=== PATIENT | female | born 1995 | race Caucasian/White ===

== ENCOUNTER 2017-05-10 09:08 | Emergency (ER) | payer OTHER ==
--- NOTE | 2017-05-10 09:28 | ED ---
Abdominal Pain/Female - HPI Summary HPI Summary: 22 female presents to ED with complaints of lower abdominal pain that comes and goes and is described as cramping/dull ache that began 2-3 weeks ago. States it is lower left side of abdomen. States she has also been nauseous. Had 2 episodes of vomiting yesterday. Normal bowel movement. No blood. No urinary symptoms and vaginal symptoms. Is sexually active and not on control. Is concerned about being . LMP was Apr 18. Is not concerned for STDs. . No other PMHx. No abdominal medical history or surgeries. No other complaints. No fever/chills. No recent travel, antibiotic use or take out food. No abdominal pain currently. States last time she was with her daughter she had the same symptoms. No medications. States she is anxious/ nervous because she thinks she is . States she also has significant breast tenderness and typically does not get that with menses. - History of Current Complaint Chief Complaint: EDAbdPain Stated Complaint: LT ABD PAIN Time Seen by Provider: 05/10/17 09:13 Hx Obtained From: Patient Hx From Patient Unobtainable Due To: Altered Mental Status Hx Last Menstrual Period: 04/18/17 , unknown if Onset/Duration: Sudden Onset, Lasting Weeks, Still Present Timing: Intermittent Episode Lasting Severity Initially: Mild Severity Currently: Mild Pain Intensity: 5 Pain Scale Used: 0-10 Numeric Location: Other - lower abdominal/suprapubic, LLQ Radiates: No Aggravating Factor(s): Nothing Alleviating Factor(s): Nothing Associated Signs and Symptoms: Positive: Nausea, Vomiting. Negative: Fever, Back Pain, Constipation, Blood in Stool, Urinary Symptoms, Decreased Appetite, Vaginal Bleeding, Vaginal Discharge, Diarrhea Allergies/Adverse Reactions: Allergies Allergy/AdvReac Type Severity Reaction Status Date / Time No Known Allergies Allergy Verified 05/10/17 09:14 PMH/Surg Hx/FS Hx/Imm Hx Endocrine/Hematology History: Denies: Hx Diabetes Cardiovascular History: Denies: Hx Hypertension Respiratory History: Denies: Hx Asthma - Surgical History Surgery Procedure, Year, and Place: none - Immunization History Immunizations Up to Date: Yes Infectious Disease History: No Infectious Disease History: Denies: Traveled Outside the [place] in Last 30 Days - Family History Known Family History: Positive: None - Social History Alcohol Use: None Substance Use Type: Reports: None Smoking Status (MU): Never Smoked Tobacco Review of Systems Constitutional: Negative Cardiovascular: Negative Respiratory: Negative Positive: Abdominal Pain, Vomiting, Nausea All Other Systems Reviewed And Are Negative: Yes Physical Exam Triage Information Reviewed: Yes Vital Signs On Initial Exam: Initial Vitals Temp Pulse Resp BP Pulse Ox 97.5 F 89 15 112/67 99 05/10/17 09:10 05/10/17 09:10 05/10/17 09:10 05/10/17 09:10 05/10/17 09:10 Vital Signs Reviewed: Yes Appearance: Positive: Well-Appearing, No Pain Distress, Well-Nourished Skin: Positive: Warm, Skin Color Reflects Adequate Perfusion, Dry. Negative: Cold, Numb, Cyanosis @, Pale, Erythema @ Head/Face: Positive: Normal Head/Face Inspection Eyes: Positive: Normal, EOMI, MERCEDES, Conjunctiva Clear ENT: Positive: Pharynx normal Neck: Positive: Supple Respiratory/Lung Sounds: Positive: Clear to Auscultation, Breath Sounds Present. Negative: Rales, Rhonchi, Wheezes Cardiovascular: Positive: Normal, RRR, Pulses are Symmetrical in both Upper and Lower Extremities. Negative: Murmur, Rub Abdomen Description: Positive: No Organomegaly, Soft, Other: - negative muprhys , rovsings, psoas and rebound. mild tenderness to palpation of suprapubic area more on left side. Negative: Bruit, CVA Tenderness (R), CVA Tenderness (L), Distended, Guarding, McBurney's Point Tenderness, Peritoneal Signs Bowel Sounds: Positive: Present Pelvic Exam: Positive: external exam normal - deferred exam Musculoskeletal: Positive: Normal, Strength/ROM Intact Neurological: Positive: Normal, Sensory/Motor Intact, Alert, Oriented to Person Place, Time Diagnostics - Vital Signs Vital Signs Temp Pulse Resp BP Pulse Ox 05/10/17 09:10 97.5 F 89 15 112/67 99 - Laboratory Result Diagrams: 05/10/17 09:50 05/10/17 09:50 Lab Statement: Any lab studies that have been ordered have been reviewed, and results considered in the medical decision making process. - Ultrasound No standard instances Ultrasound Interpretation: Positive (See Comments) - 1. THE ENDOMETRIUM IS SLIGHTLY THICKENED MEASURING 1.5 CM. 2. 1.6 CM HEMORRHAGIC CYST OF THE RIGHT OVARY. 3. 3.6 CM HYPERECHOIC CYSTIC LESION OF THE LEFT OVARY. DIFFERENTIAL INCLUDES AN ENDOMETRIOMA OR HEMORRHAGIC CYST. THE DIFFERENTIAL ALSO INCLUDES A DERMOID CYST, THOUGH THIS IS CONSIDERED LESS LIKELY. 4. NO SONOGRAPHIC FEATURES OF TORSION. PLEASE NOTE THAT PARTIAL OR INTERMITTENT TORSION MAY BE SONOGRAPHICALLY NORMAL. Ultrasound Interpretation Completed By: Radiologist Re-Evaluation - Re-Evaluation First Eval Re-Evaluation Time: 11:15 Change: Improved - feeling better no nausea, vomiting and no pain. Abdominal Pain Fem Course/Dx - Course Course Of Treatment: ultrasound obtained and showed bilateral ovarian cysts and thickened endometrium. labs and urinalysis obtained. labs show indeterminate HCG level with possible . patient was comfortable and without nausea/ vomiting and pain throughout ED stay. deferred pelvic exam. will have follow up HCG in 72 hours and will follow up with OBGYN to follow up on ovarian cysts. Tylenol and heating pad for any pain. Follow up OBGYN to determine confirmed prengnacy or not. No other concerns/complaints at this time. Aware of worsening signs and symptoms. Normal vitals, physical exam and labs otherwise. - Diagnoses Differential Diagnosis: Positive: Ovarian Cyst, Pelvic Inflammatory Disease, , Other - nausea/vomiting Provider Diagnoses: Ovarian cyst, Possible , not yet confirmed, Nausea Discharge - Discharge Plan Condition: Good Disposition: HOME Patient Education Materials: Nausea and Vomiting in (ED), ( ED), Ovarian Cyst (ED) Referrals: Lynne Kate MD [Medical Doctor] - Additional Instructions: Tylenol as needed for discomfort. Warm heating pads. Increase fluid intake. Have repeat HCG in 72 bours to determine status. Follow up with OBGYN for recheck HCG and repeat US to watch ovarian cysts. Any new or worsening signs/symptoms please seek medical attention promptly, as discussed.
[2017-05-10 10:06] LABS: ABS Basophils 0 10^3/ul (0-0.2); ABS Eosinophils 0.1 10^3/ul (0-0.6); ABS Lymphocytes 1.8 10^3/ul (1.0-4.8); ABS Monocytes 0.4 10^3/ul (0-0.8); ABS Neutrophils 4.5 10^3/ul (1.5-7.7); ABS Nucleated RBC 0 10^3/ul; Eosinophil % 1.4 % (0-6); Hematocrit 37 % (35-47); Hemoglobin 12.3 g/dl (12.0-16.0); Lymphocyte % 25.8 % (25-47); Mean Corpuscular HGB Conc 33 g/dl (31-36); Mean Corpuscular Hemoglobin 30 pg (27-31); Mean Corpuscular Volume 88 fL (80-97); Mean Platelet Volume 9 um3 (7.4-10.4); Nucleated Red Blood Cells % 0; Platelet Count 208 10^3/ul (150-450); Red Blood Count 4.16 10^6/ul (4.0-5.4); Red Cell Distribution Width 14 % (10.5-15); White Blood Count 6.9 10^3/ul (3.5-10.8)
[2017-05-10 10:54] LABS: Urine Appearance Clear; Urine Blood Negative (Negative); Urine Color Colorless; Urine Ketones Trace (Negative); Urine Protein Negative (Negative); Urine Specific Gravity 1.002 (1.010-1.030); Urine Urobilinogen Negative (Negative)
--- NOTE | 2017-05-10 11:00 | RAD ---
Edited for charges. HISTORY: Lower abdominal pain COMPARISONS: None TECHNIQUE: Multiple transverse and longitudinal ultrasound images were obtained of the pelvis using grayscale, color Doppler, and spectral Doppler imaging using the endovaginal transducer. FINDINGS: UTERUS: The uterus measures 8.6 x 4.4 x 6 cm. The uterus is normal in shape, size, contour, and echotexture. ENDOMETRIUM: The endometrial stripe is smooth. The endometrium measures 1.5 cm in thickness. CUL-DE-SAC: There is no free fluid within the cul-de-sac. RIGHT OVARY: The right ovary measures 3.8 x 1.8 x 2 cm. Normal arterial and venous waveforms are identifiable within the ovary on spectral Doppler imaging. There is a complicated cyst suggestive of a hemorrhagic cyst measuring 1.6 x 1.3 x 1.4 cm in size. LEFT OVARY: The left ovary measures 4.3 x 3.4 x 3.2 cm. Normal arterial and venous waveforms are identifiable within the ovary on spectral Doppler imaging. There is a homogeneously hyperechoic cystic lesion of the left ovary measuring 3.2 x 3.6 x 3.2 cm in size. There is no internal vascularity or shadowing elements BLADDER: The bladder is not well visualized. OTHER: None IMPRESSION: 1. THE ENDOMETRIUM IS SLIGHTLY THICKENED MEASURING 1.5 CM. 2. 1.6 CM HEMORRHAGIC CYST OF THE RIGHT OVARY. 3. 3.6 CM HYPERECHOIC CYSTIC LESION OF THE LEFT OVARY. DIFFERENTIAL INCLUDES AN ENDOMETRIOMA OR HEMORRHAGIC CYST. THE DIFFERENTIAL ALSO INCLUDES A DERMOID CYST , THOUGH THIS IS CONSIDERED LESS LIKELY. 4. NO SONOGRAPHIC FEATURES OF TORSION. PLEASE NOTE THAT PARTIAL OR INTERMITTENT TORSION MAY BE SONOGRAPHICALLY NORMAL. MTDD
[2017-05-10 11:47] VITALS: BP 112/68
== END 2017-05-10 11:46 | disposition home or self-care (01) ==
LOC: ED 09:08
DX: N83.209 Unspecified ovarian cyst, unspecified side (principal); R10.32 Left lower quadrant pain; R11.2 Nausea with vomiting, unspecified
CPT/HCPCS: 36415; 76830; 76856; 80053; 81003; 83605; 83690; 84702; 85025; 86140; 99282

== ENCOUNTER 2017-05-13 09:10 | Emergency (ER) | payer OTHER ==
[2017-05-13 09:50] LABS: Urine Appearance Clear; Urine Blood 1+ (Negative); Urine Color Yellow; Urine Ketones 1+ (Negative); Urine Protein Negative (Negative); Urine Specific Gravity 1.012 (1.010-1.030); Urine Urobilinogen Negative (Negative)
[2017-05-13 09:57] LABS: ABS Basophils 0 10^3/ul (0-0.2); ABS Eosinophils 0.1 10^3/ul (0-0.6); ABS Monocytes 0.5 10^3/ul (0-0.8); ABS Neutrophils 5.3 10^3/ul (1.5-7.7); ABS Nucleated RBC 0 10^3/ul; Eosinophil % 1.2 % (0-6); Hematocrit 39 % (35-47); Hemoglobin 12.7 g/dl (12.0-16.0); Lymphocyte % 24.8 % (25-47); Mean Corpuscular HGB Conc 33 g/dl (31-36); Mean Corpuscular Hemoglobin 29 pg (27-31); Mean Corpuscular Volume 89 fL (80-97); Mean Platelet Volume 9 um3 (7.4-10.4); Nucleated Red Blood Cells % 0; Platelet Count 221 10^3/ul (150-450); Red Blood Count 4.37 10^6/ul (4.0-5.4); Red Cell Distribution Width 15 % (10.5-15); White Blood Count 7.9 10^3/ul (3.5-10.8)
[2017-05-13 10:15] LABS: EGFR Non-African American 103.7 (>60)
[2017-05-13 11:04] VITALS: BP 118/59
--- NOTE | 2017-05-13 11:08 | ED ---
Malina Layne Gabriel scribed for Brendon Bustamante MD on 05/13/17 at 0934 . GI/ HPI - HPI Summary HPI Summary: This patient is a 22 year old F presenting to [facility] to confirm her . Patient states she was told to come back in 72 hours to confirm her and she how far along she is. She was seen 3 days ago for ABD pain and an US revealed an enlarged left sided ovarian cyst. Patient reports fatigue, myalgia, morning sickness, and nausea. She states that due to her condition at the time of her last exam they were unable to tell if she was . - History of Current Complaint Chief Complaint: EDOBProblems Time Seen by Provider: 05/13/17 09:25 Stated Complaint: OB PROBLEM-RETURN FROM [facility] Hx Obtained From: Patient Hx Last Menstrual Period: 04/18/17 , unknown if Onset/Duration: Still Present Timing: Constant Severity: Mild Current Severity: Mild Pain Intensity: 2 Location of Pain: Diffuse Associated Signs and Symptoms: Positive: Other: - fatigue, myalgia, morning sickness, and nausea. - Allergy/Home Medications Allergies/Adverse Reactions: Allergies Allergy/AdvReac Type Severity Reaction Status Date / Time No Known Allergies Allergy Verified 05/13/17 09:23 PMH/Surg Hx/FS Hx/Imm Hx Endocrine/Hematology History: Denies: Hx Diabetes Cardiovascular History: Denies: Hx Hypertension Respiratory History: Denies: Hx Asthma History: Reports: Other Problems/Disorders - ovarian cysts - Surgical History Surgery Procedure, Year, and Place: none Infectious Disease History: No Infectious Disease History: Denies: Traveled Outside the [place] in Last 30 Days - Family History Known Family History: Negative: Diabetes, Renal Disease, Respiratory Disease, Seizure Disorder - Social History Alcohol Use: None Substance Use Type: Reports: None Smoking Status (MU): Never Smoked Tobacco Review of Systems Positive: Fatigue, Other - morning sickness Positive: Nausea Positive: Myalgia All Other Systems Reviewed And Are Negative: Yes Physical Exam - Summary Physical Exam Summary: VITAL SIGNS: Reviewed. GENERAL: Patient is a well-developed and nourished female who is lying comfortable in the stretcher. Patient is not in any acute respiratory distress. HEAD AND FACE: No signs of trauma. No ecchymosis, hematomas or skull depressions. No sinus tenderness. EYES: PERRLA, EOMI x 2, No injected conjunctiva, no nystagmus. EARS: Hearing grossly intact. Ear canals and tympanic membranes are within normal limits. MOUTH: Oropharynx within normal limits. NECK: Supple, trachea is midline, no adenopathy, no JVD, no carotid bruit, no c- spine tenderness, neck with full ROM. CHEST: Symmetric, no tenderness at palpation LUNGS: Clear to auscultation bilaterally. No wheezing or crackles. CVS: Regular rate and rhythm, S1 and S2 present, no murmurs or gallops appreciated. ABDOMEN: Soft, non-tender. No signs of distention. No rebound no guarding, and no masses palpated. Bowel sounds are normal. EXTREMITIES: FROM in all major joints, no edema, no cyanosis or clubbing. NEURO: Alert and oriented x 3. No acute neurological deficits. Speech is normal and follows commands. SKIN: Dry and warm Triage Information Reviewed: Yes Vital Signs On Initial Exam: Initial Vitals Temp Pulse Resp BP Pulse Ox 96.9 F 95 14 114/67 100 05/13/17 09:11 05/13/17 09:11 05/13/17 09:11 05/13/17 09:11 05/13/17 09:11 Vital Signs Reviewed: Yes Diagnostics - Vital Signs Vital Signs Temp Pulse Resp BP Pulse Ox 05/13/17 09:11 96.9 F 95 14 114/67 100 - Laboratory Lab Results: Lab Results 05/13/17 05/13/17 05/13/17 Range/Units 09:34 09:42 09:42 WBC 7.9 (3.5-10.8) 10^3/ul RBC 4.37 (4.0-5.4) 10^6/ul Hgb 12.7 (12.0-16.0) g/dl Hct 39 (35-47) % MCV 89 (80-97) fL MCH 29 (27-31) pg MCHC 33 (31-36) g/dl RDW 15 (10.5-15) % Plt Count 221 (150-450) 10^3/ul MPV 9 (7.4-10.4) um3 Neut % (Auto) 67.7 (38-83) % Lymph % (Auto) 24.8 L (25-47) % [place] % (Auto) 5.9 (0-7) % Eos % (Auto) 1.2 (0-6) % Baso % (Auto) 0.4 (0-2) % Absolute Neuts (auto) 5.3 (1.5-7.7) 10^3/ul Absolute Lymphs (auto) 2.0 (1.0-4.8) 10^3/ul Absolute Monos (auto) 0.5 (0-0.8) 10^3/ul Absolute Eos (auto) 0.1 (0-0.6) 10^3/ul Absolute Basos (auto) 0 (0-0.2) 10^3/ul Absolute Nucleated RBC 0 10^3/ul Nucleated RBC % 0 Sodium 135 (133-145) mmol/L Potassium 3.5 (3.5-5.0) mmol/L Chloride 104 (101-111) mmol/L Carbon Dioxide 25 (22-32) mmol/L Anion Gap 6 (2-11) mmol/L BUN 7 (6-24) mg/dL Creatinine 0.70 (0.51-0.95) mg/dL Est GFR ( Amer) 133.4 (>60) Est GFR (Non-Af Amer) 103.7 (>60) BUN/Creatinine Ratio 10.0 (8-20) Glucose 95 (70-100) mg/dL Calcium 9.3 (8.6-10.3) mg/dL Total Bilirubin 0.50 (0.2-1.0) mg/dL AST 13 (13-39) U/L ALT 14 (7-52) U/L Alkaline Phosphatase 65 (34-104) U/L C-Reactive Protein 7.12 H (< 5.00) mg/L Total Protein 7.4 (6.4-8.9) g/dL Albumin 4.3 (3.2-5.2) g/dL Globulin 3.1 (2-4) g/dL Albumin/Globulin Ratio 1.4 (1-3) Beta HCG, Quant 71.30 mIU/mL Urine Color Yellow Urine Appearance Clear Urine pH 6.0 (5-9) Ur Specific [place] 1.012 (1.010-1.030) Urine Protein Negative (Negative) Urine Ketones 1+ A (Negative) Urine Blood 1+ A (Negative) Urine Nitrate Negative (Negative) Urine Bilirubin Negative (Negative) Urine Urobilinogen Negative (Negative) Ur Leukocyte Esterase Negative (Negative) Urine WBC (Auto) Absent (Absent) Urine RBC (Auto) Trace(0-2/hpf) (Absent) Ur Squamous Epith Cells Present A (Absent) Urine Bacteria Absent (Absent) Urine Glucose Negative (Negative) Result Diagrams: 05/13/17 09:42 05/13/17 09:42 Lab Statement: Any lab studies that have been ordered have been reviewed, and results considered in the medical decision making process. GIGU Course/Dx - Course Assessment/Plan: This patient is a 22 year old F presenting to [facility] to confirm her . Patient states she was told to come back in 72 hours to confirm her and she how far along she is. She was seen 3 days ago for ABD pain and an US revealed an enlarged left sided ovarian cyst. Patient reports fatigue, myalgia, morning sickness, and nausea. She states that due to her condition at the time of her last exam they were unable to tell if she was . Test results with no significant abnormalities except for beta HCG of 71. Thus she may have an early however it is double in 48 hours. She will be referred to ACCESS REP. Dx . Patient will be discharged and follow up from [facility]. She has no abdominal pain or cramping. no vaginal bleeding or discharge. I discussed all the findings and test results with the patient. Patient was instructed to return to the emergency room immediately if any of the symptoms return or worsens. Plan of care was discussed with the patient and understands and agrees. All questions were answered at patient satisfaction. There were no further complaints or concerns. Lung exam before discharge: CTA B/L. Good air exchange. No wheezing or crackles heard. CVS: S1 and S2 present. No murmurs appreciated. Patient is alert and oriented x 3. Patient is hemodynamically stable. Patient will be discharged home with follow up PCP in the next 2-3 days. The patient is agreeable with this plan. - Diagnoses Provider Diagnoses: Discharge - Discharge Plan Condition: Stable Disposition: HOME Patient Education Materials: (ED) Referrals: Lynne Kate MD [Medical Doctor] - 4 Days Additional Instructions: RETURN TO EMERGENCY DEPARTMENT FOR ANY NEW OR WORSENING SYMPTOMS The documentation as recorded by the Malina cordon Gabriel accurately reflects the service I personally performed and the decisions made by Robby araiza Walter, MD.
== END 2017-05-13 11:03 | disposition home or self-care (01) ==
LOC: ED 09:10
DX: O26.90 Pregnancy related conditions, unspecified, unspecified trimester (principal); R53.83 Other fatigue; R11.0 Nausea
CPT/HCPCS: 36415; 80053; 81003; 81015; 84702; 85025; 86140; 99282

== ENCOUNTER 2017-05-19 15:54 | Emergency (ER) | payer SELFPAY ==
[2017-05-19] MEDS ORDERED: NS 0.9% 1000 ML* 1,000 ML IV ONE (19:19)
[2017-05-19 19:44] LABS: ABS Basophils 0 10^3/ul (0-0.2); ABS Eosinophils 0.1 10^3/ul (0-0.6); ABS Lymphocytes 3.1 10^3/ul (1.0-4.8); ABS Monocytes 0.6 10^3/ul (0-0.8); ABS Neutrophils 6.1 10^3/ul (1.5-7.7); ABS Nucleated RBC 0 10^3/ul; Eosinophil % 1.1 % (0-6); Hematocrit 39 % (35-47); Hemoglobin 12.9 g/dl (12.0-16.0); Lymphocyte % 31.4 % (25-47); Mean Corpuscular HGB Conc 33 g/dl (31-36); Mean Corpuscular Hemoglobin 30 pg (27-31); Mean Corpuscular Volume 89 fL (80-97); Mean Platelet Volume 9 um3 (7.4-10.4); Nucleated Red Blood Cells % 0; Platelet Count 264 10^3/ul (150-450); Red Blood Count 4.35 10^6/ul (4.0-5.4); Red Cell Distribution Width 15 % (10.5-15)
[2017-05-19] MEDS ORDERED: Metoclopramide TAB* 10 MG PO ONE (19:47)
[2017-05-19 20:01] LABS: EGFR Non-African American 107.2 (>60)
--- NOTE | 2017-05-19 21:11 | RAD ---
Indication: . 5 weeks 0 days based on April 17, 2017 LMP however beta hCG only 353. No gestational sac visualized on May 10, 2017 ultrasound. LEFT lower quadrant pain. Question ectopic. History of ovarian cysts. Comparison: May 10, 2017 Technique: Transabdominal and transvaginal technique pelvic ultrasound. Report: 9.9 x 4.7 x 6.4 cm retroverted uterus. 18 mm endometrium. Minimal fluid at the fundal portion of the endometrial cavity. No compelling intrauterine gestational sac evident. Trace free fluid in the RIGHT adnexal region. 4.3 x 2.8 x 1.9 cm RIGHT ovary with documented vascular flow is remarkable for a 1.9 x 1.5 x 1.5 cm cyst with a reticulated pattern of internal echoes devoid of intrinsic vascularity most consistent with a hemorrhagic cyst without significant change compared with the prior exam. 5.0 x 3.5 x 3.4 cm LEFT ovary with documented vascular flow is remarkable for a 3.1 x 3.5 x 3.5 cm thick irregular walled complex cyst with with equivocal intrinsic vascularity. No visualized extra ovarian adnexal region lesions evident. IMPRESSION: 1. No compelling IUP visualized. 5 mm circumscribed fluid at the fundal portion of the endometrium while nonspecific may represent a pseudosac or failed intrauterine gestation. 2. No extra ovarian adnexal region lesions to favor ectopic . 3. No significant change in 1.9 cm hemorrhagic cyst of the RIGHT ovary or complex irregularly thick walled cyst of the LEFT ovary measuring up to 3.5 cm which may represent a hemorrhagic cyst, endometrioma, or potentially a dermoid cyst. 4. Close clinical, serial beta-hCG, and sonographic follow-up suggested as deemed appropriate.
[2017-05-19 21:16] LABS: Urine Appearance Cloudy; Urine Blood Negative (Negative); Urine Color Yellow; Urine Ketones Trace (Negative); Urine Protein Negative (Negative); Urine Specific Gravity 1.016 (1.010-1.030); Urine Urobilinogen Negative (Negative)
--- NOTE | 2017-05-19 23:01 | ED ---
Abdominal Pain/Female - HPI Summary HPI Summary: Patient here with left lower quadrant pain since last night. She has a history of documented via serum hCG as of 05/13/2017 and repeated once since (increasing each time - most recent in 's - see labs for details). During her initial visit here on 05/10/2017 in the emergency department for left lower quadrant pain, she was found to have a bilateral ovarian cysts, left greater than right. was not identified structurally at that time and torsion was ruled out. She was advised to follow w/ serumn hcg which she has w / [facility] (see previous comments). She denies any vaginal bleeding, vaginal d/c, cramping, change in bowel or bladder habits. She does have nausea every morning and declined anti-emetic medication last time she was here. She also has not been taking acetaminophen as she does not want to take anything during her . 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 Her second was viable and she delivered vaginally without complications. Tonight she denies fevers, chills, chest pain, headache , skin changes, difficulty breathing. She had initial visit with [facility] this past week and has a follow-up in June. She is here tonight due to return of left lower quadrant pain. - History of Current Complaint Chief Complaint: EDNauseaVomitDiarrh Stated Complaint: NAUSEA/5 WEEKS Time Seen by Provider: 05/19/17 19:18 Hx Obtained From: Patient Hx Last Menstrual Period: 04/18/17 , unknown if Pain Intensity: 4 Allergies/Adverse Reactions: Allergies Allergy/AdvReac Type Severity Reaction Status Date / Time No Known Allergies Allergy Verified 05/13/17 09:23 PMH/Surg Hx/FS Hx/Imm Hx Previously Healthy: Yes Endocrine/Hematology History: Denies: Hx Anticoagulant Therapy, Hx Blood Disorders, Hx Diabetes Cardiovascular History: Denies: Hx Hypertension Respiratory History: Denies: Hx Asthma History: Reports: Other Problems/Disorders - ovarian cysts - Surgical History Surgery Procedure, Year, and Place: none Infectious Disease History: No Infectious Disease History: Denies: Traveled Outside the [place] in Last 30 Days - Family History Known Family History: Positive: None Negative: Diabetes, Renal Disease, Respiratory Disease, Seizure Disorder - Social History Alcohol Use: None Substance Use Type: Reports: None Smoking Status (MU): Never Smoked Tobacco Physical Exam Vital Signs On Initial Exam: Initial Vitals Temp Pulse Resp BP Pulse Ox 98 F 101 14 109/62 100 05/19/17 16:00 05/19/17 16:00 05/19/17 16:00 05/19/17 16:00 05/19/17 16:00 Diagnostics - Vital Signs Vital Signs Temp Pulse Resp BP Pulse Ox 05/19/17 16:00 98 F 101 14 109/62 100 - Laboratory Lab Results: Lab Results 05/19/17 05/19/17 05/19/17 Range/Units 19:31 19:31 19:31 WBC 10.0 (3.5-10.8) 10^3/ul RBC 4.35 (4.0-5.4) 10^6/ul Hgb 12.9 (12.0-16.0) g/dl Hct 39 (35-47) % MCV 89 (80-97) fL MCH 30 (27-31) pg MCHC 33 (31-36) g/dl RDW 15 (10.5-15) % Plt Count 264 (150-450) 10^3/ul MPV 9 (7.4-10.4) um3 Neut % (Auto) 60.9 (38-83) % Lymph % (Auto) 31.4 (25-47) % [place] % (Auto) 6.1 (0-7) % Eos % (Auto) 1.1 (0-6) % Baso % (Auto) 0.5 (0-2) % Absolute Neuts (auto) 6.1 (1.5-7.7) 10^3/ul Absolute Lymphs (auto) 3.1 (1.0-4.8) 10^3/ul Absolute Monos (auto) 0.6 (0-0.8) 10^3/ul Absolute Eos (auto) 0.1 (0-0.6) 10^3/ul Absolute Basos (auto) 0 (0-0.2) 10^3/ul Absolute Nucleated RBC 0 10^3/ul Nucleated RBC % 0 Sodium 138 (133-145) mmol/L Potassium 3.7 (3.5-5.0) mmol/L Chloride 104 (101-111) mmol/L Carbon Dioxide 24 (22-32) mmol/L Anion Gap 10 (2-11) mmol/L BUN 4 L (6-24) mg/dL Creatinine 0.68 (0.51-0.95) mg/dL Est GFR ( Amer) 137.9 (>60) Est GFR (Non-Af Amer) 107.2 (>60) BUN/Creatinine Ratio 5.9 L (8-20) Glucose 96 (70-100) mg/dL Lactic Acid 0.7 (0.5-2.0) mmol/L Calcium 9.5 (8.6-10.3) mg/dL Magnesium 2.2 (1.9-2.7) mg/dL Total Bilirubin 0.30 (0.2-1.0) mg/dL AST 14 (13-39) U/L ALT 17 (7-52) U/L Alkaline Phosphatase 65 (34-104) U/L C-Reactive Protein 8.51 H (< 5.00) mg/L Total Protein 7.7 (6.4-8.9) g/dL Albumin 4.5 (3.2-5.2) g/dL Globulin 3.2 (2-4) g/dL Albumin/Globulin Ratio 1.4 (1-3) Lipase 14 (11.0-82.0) U/L Beta HCG, Quant 1188.27 mIU/mL Urine Color Urine Appearance Urine pH (5-9) Ur Specific [place] (1.010-1.030) Urine Protein (Negative) Urine Ketones (Negative) Urine Blood (Negative) Urine Nitrate (Negative) Urine Bilirubin (Negative) Urine Urobilinogen (Negative) Ur Leukocyte Esterase (Negative) Urine Glucose (Negative) 05/19/17 Range/Units 20:56 WBC (3.5-10.8) 10^3/ul RBC (4.0-5.4) 10^6/ul Hgb (12.0-16.0) g/dl Hct (35-47) % MCV (80-97) fL MCH (27-31) pg MCHC (31-36) g/dl RDW (10.5-15) % Plt Count (150-450) 10^3/ul MPV (7.4-10.4) um3 Neut % (Auto) (38-83) % Lymph % (Auto) (25-47) % Kent % (Auto) (0-7) % Eos % (Auto) (0-6) % Baso % (Auto) (0-2) % Absolute Neuts (auto) (1.5-7.7) 10^3/ul Absolute Lymphs (auto) (1.0-4.8) 10^3/ul Absolute Monos (auto) (0-0.8) 10^3/ul Absolute Eos (auto) (0-0.6) 10^3/ul Absolute Basos (auto) (0-0.2) 10^3/ul Absolute Nucleated RBC 10^3/ul Nucleated RBC % Sodium (133-145) mmol/L Potassium (3.5-5.0) mmol/L Chloride (101-111) mmol/L Carbon Dioxide (22-32) mmol/L Anion Gap (2-11) mmol/L BUN (6-24) mg/dL Creatinine (0.51-0.95) mg/dL Est GFR ( Amer) (>60) Est GFR (Non-Af Amer) (>60) BUN/Creatinine Ratio (8-20) Glucose (70-100) mg/dL Lactic Acid (0.5-2.0) mmol/L Calcium (8.6-10.3) mg/dL Magnesium (1.9-2.7) mg/dL Total Bilirubin (0.2-1.0) mg/dL AST (13-39) U/L ALT (7-52) U/L Alkaline Phosphatase (34-104) U/L C-Reactive Protein (< 5.00) mg/L Total Protein (6.4-8.9) g/dL Albumin (3.2-5.2) g/dL Globulin (2-4) g/dL Albumin/Globulin Ratio (1-3) Lipase (11.0-82.0) U/L Beta HCG, Quant mIU/mL Urine Color Yellow Urine Appearance Cloudy Urine pH 5.0 (5-9) Ur Specific [place] 1.016 (1.010-1.030) Urine Protein Negative (Negative) Urine Ketones Trace A (Negative) Urine Blood Negative (Negative) Urine Nitrate Negative (Negative) Urine Bilirubin Negative (Negative) Urine Urobilinogen Negative (Negative) Ur Leukocyte Esterase Negative (Negative) Urine Glucose Negative (Negative) Result Diagrams: 05/19/17 19:31 05/19/17 19:31 Lab Statement: Any lab studies that have been ordered have been reviewed, and results considered in the medical decision making process. Abdominal Pain Fem Course/Dx - Course Course Of Treatment: Ultrasound. "Impression: 1. No compelling IUP visualized. 5 mm circumscribed fluid at the fundal portion of the endometrium while nonspecific may represent a pseudocyst sac Or failed intrauterine gestation. 2. No extra ovarian adnexal region lesions disfavor ectopic . 3. No significant change and 1.9 cm hemorrhagic cyst on the right ovary or complex irregularly thick-walled cyst of the left ovary measuring up to 3.5 cm which may represent a hemorrhagic cyst, endometrioma or potentially a dermoid cyst. 4. Close clinical, serial beta hCG, and sonographic follow-up suggested as deemed appropriate. Torsion and ectopic ruled out. Serum hcg continues to increase and something ID'd in uterus. Advised pt on close f/u and danger s/sx of when to return to ED - Diagnoses Provider Diagnoses: Bilateral ovarian cysts, - Provider Notifications Discussed Care Of Patient With: Charly Durham Discharge - Discharge Plan Condition: Stable Disposition: HOME Prescriptions: Metoclopramide TAB* [Reglan TAB*] 10 mg PO Q8H PRN #15 tab PRN Reason: Nausea Patient Education Materials: Nausea and Vomiting in (ED), ( ED), Ovarian Cyst (ED) Referrals: Lynne Kate MD [Medical Doctor] - Additional Instructions: Your ultrasound ruled out ovarian torsion and ectopic as well as worsening of your ovarian cysts (the left is larger then the right which is most likely causing your pain). In regards to a viable , it's still too soon to tell however you have a sac in the uterus which could be a . You may treat this as a viable and follow-up with [facility] Monday or Monday for repeat hcg lab and ultrasound at their discretion - call Monday to schedule an appointment. You may try warm baths with acetaminophen for pain. Additionally, you were prescribed reglan for nausea - take as directed. *If in the meantime you develop vaginal bleeding, worsening of pain, cramping, intractable vomiting/diarrhea, fever, chills, return to the ED
[2017-05-19 23:25] VITALS: BP 92/48
== END 2017-05-19 23:24 | disposition home or self-care (01) ==
LOC: ED 15:54
DX: O34.81 Maternal care for other abnormalities of pelvic organs, first trimester (principal); N83.202 Unspecified ovarian cyst, left side; N83.201 Unspecified ovarian cyst, right side; Z3A.01 Less than 8 weeks gestation of pregnancy
CPT/HCPCS: 36415; 76817; 80053; 81003; 83605; 83690; 83735; 84702; 85025; 86140; 96360; 99283; A9270-GY

== ENCOUNTER 2017-05-24 11:18 | Emergency (ER) | payer OTHER ==
--- NOTE | 2017-05-24 14:55 | ED ---
- HPI Summary HPI Summary: Patient here today requesting ultrasound to confirm viable . She has been seen here 3 times prior to her visit today. Previous visits have identified increasing serial hCGs and most recent visit confirmed stable bilateral ovarian cysts (left greater than right) without torsion and an intrauterine sac, indeterminant of viable . She was advised at her most recent visit to follow-up with [facility] for repeat hCG labs and ultrasound either within the next 3 days or at their discretion. She did call them and has an ultrasound scheduled for early June. Also reviewed danger signs and symptoms of when to return to the emergency department. Patient denies any of those danger signs and symptoms specifically abdominal or pelvic pain or cramping, back pain, vaginal spotting or bleeding, fevers, chills, nausea, vomiting. She has not been taking any medications except for vitamins. It was suggested she may take Tylenol and warm baths for her ovarian cyst discomfort which she has not tried yet as she is concerned about hurting her potential fetus. She has no complaints. She is simply here for an ultrasound. She reports she is quite anxious to confirm one way or the other if she is with a viable fetus as she has communicated her situation with a friend and the possible biological father. She admits she is anxious in her current state and she's had a miscarriage in the past and wants to find out as soon as possible. - History of Current Complaint Chief Complaint: EDOBProblems Stated Complaint: RECHECK OF VITALS Time Seen by Provider: 05/24/17 12:15 Hx Obtained From: Patient Pain Intensity: 4 - Allergies/Home Medications Allergies/Adverse Reactions: Allergies Allergy/AdvReac Type Severity Reaction Status Date / Time No Known Allergies Allergy Verified 05/24/17 12:02 PMH/Surg Hx/FS Hx/Imm Hx Previously Healthy: Yes Endocrine/Hematology History: Denies: Hx Anticoagulant Therapy, Hx Blood Disorders, Hx Diabetes Cardiovascular History: Denies: Hx Hypertension Respiratory History: Denies: Hx Asthma History: Reports: Other Problems/Disorders - ovarian cysts Psychiatric History: Reports: Hx Anxiety - focused around previous miscarriage - Surgical History Surgery Procedure, Year, and Place: none - Immunization History Immunizations Up to Date: Unable to Obtain/Confirm Infectious Disease History: No Infectious Disease History: Denies: Traveled Outside the [place] in Last 30 Days - Family History Known Family History: Positive: None Negative: Diabetes, Renal Disease, Respiratory Disease, Seizure Disorder - Social History Lives: With Family Alcohol Use: None Hx Substance Use: No Substance Use Type: Reports: None Hx Tobacco Use: No Smoking Status (MU): Never Smoked Tobacco Review of Systems Constitutional: Negative Eyes: Negative ENT: Negative Cardiovascular: Negative Respiratory: Negative Gastrointestinal: Negative Genitourinary: Negative Positive: see HPI Musculoskeletal: Negative Skin: Negative Neurological: Negative Positive: Anxious All Other Systems Reviewed And Are Negative: Yes Physical Exam - Physical Exam Triage Information Reviewed: Yes Vital Signs Reviewed: Yes Appearance: Positive: Well-Appearing, No Pain Distress, Well-Nourished Skin: Positive: Warm, Skin Color Reflects Adequate Perfusion, Dry Head/Face: Positive: Normal Head/Face Inspection Eyes: Positive: Normal, EOMI, Conjunctiva Clear ENT: Positive: Hearing grossly normal, Pharynx normal - Mucosa moist Neck: Positive: Supple, Nontender Respiratory/Lung Sounds: Positive: Clear to Auscultation, Breath Sounds Present Cardiovascular: Positive: Normal, RRR, Pulses are Symmetrical in both Upper and Lower Extremities Abdomen Description: Positive: Nontender, Soft Bowel Sounds: Positive: Present Musculoskeletal: Positive: Normal, Strength/ROM Intact Neurological: Positive: Normal, Sensory/Motor Intact, Alert, Oriented to Person Place, Time Psychiatric: Positive: Anxious - No SI or HI Diagnostics - Vital Signs Vital Signs Temp Pulse Resp BP Pulse Ox 05/24/17 11:58 97.6 F 96 18 114/71 100 - Laboratory Lab Statement: Any lab studies that have been ordered have been reviewed, and results considered in the medical decision making process. Course/Dx - Course Course Of Treatment: Dr. Rdz into treatment room to perform bedside ultrasound in the efforts of identifying viable fetus as more advanced U/S is not necessary in the ED w/o danger s/sx. These efforts however were unsuccessful. Call was placed to Dr. Fernandez at [facility] who confirms she has reviewed the patient's ultrasound and prefers patient has repeat ultrasound at the date already set with patient in an effort to get most information possible. Explained to patient that based on her increase in serial hCGs, she most likely has a viable however we cannot say one way or the other until her next ultrasound can confirm this. Although this has been explained to patient multiple times (previous visit, today by myself and again by Dr. Rdz), she still reports she's confused that no one knows if she is actually or not. Encouraged to continue with care in the outcome that she is . She admits she does not want to be told she is if she is not as this will be very disappointing if she finds out she is not. Furthermore, suggested she seek counseling to help her through this time as she is upset about a previous miscarriage and may be caring some grief and anxiety along into the scenario as well. Offer that she tries to take control of the things she has control of such as eating healthy, getting good rest, exercising and following up with [facility] as directed. Also encouraged she limit the number of people she shares this underdetermined information with so she does not have to share results she is not happy about them at her next ultrasound. Pt eventually agrees with plan. - Diagnoses Provider Diagnoses: Elevated serum hCG, Discharge - Sign-Out/Discharge Documenting (check all that apply): Discharge - Discharge Plan Condition: Stable Disposition: HOME Patient Education Materials: (ED) Referrals: Kirby Nash MD [Medical Doctor] - Additional Instructions: Continue to follow guidelines such as healthy eating, staying hydrated , avoiding caffeine, alcohol and medications other than tylenol for pain and reglan for nausea. Keep ultrasound appointment with OBGYN in June as directed. If in the meantime, you develop fever, chills, abdominal/pelvic pain, cramping, vaginal bleeding, return to ED - Billing Disposition and Condition Condition: STABLE Disposition: HOME
[2017-05-24 15:24] VITALS: BP 108/61
== END 2017-05-24 15:23 | disposition home or self-care (01) ==
LOC: ED 11:18
DX: Z34.90 Encounter for supervision of normal pregnancy, unspecified, unspecified trimester (principal)
CPT/HCPCS: 99281

== ENCOUNTER 2018-06-07 17:27 | Emergency (ER) | payer OTHER ==
[2018-06-07 18:01] VITALS: BP 133/75
[2018-06-07] MEDS ORDERED: Hydrocortisone 1% CREAM* 30 GM TUBE TOPICAL ONE (18:07)
--- NOTE | 2018-06-07 18:08 | UC ---
Skin Complaint HPI - HPI Summary HPI Summary: 23 yo female presents with rash to b/l forearms. 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 She was using the soaps to wash the dishes and about a half hour to an hour later developed a rash on her arms that is mildly itchy. She has not applied any creams or used any OTC medications. Rash has been present about 4 hours. Not spreading. She thinks she may be allergic to the soap - History of Current Complaint Chief Complaint: UCRash Time Seen by Provider: 06/07/18 18:02 Stated Complaint: RASH Hx Obtained From: Patient Hx Last Menstrual Period: 04/18/17 , unknown if Onset/Duration: Sudden Onset Onset Severity: Mild Current Severity: Mild Pain Intensity: 2 Pain Scale Used: 0-10 Numeric - Allergy/Home Medications Allergies/Adverse Reactions: Allergies Allergy/AdvReac Type Severity Reaction Status Date / Time No Known Allergies Allergy Verified 06/07/18 18:01 PMH/Surg Hx/FS Hx/Imm Hx - Additional Past Medical History Additional PMH: None Other History Of: Negative For: Anticoagulant Therapy - Surgical History Surgical History: None Surgery Procedure, Year, and Place: none - Family History Known Family History: Positive: None Negative: Diabetes, Renal Disease, Respiratory Disease, Seizure Disorder - Social History Lives: With Family Alcohol Use: None Substance Use Type: None Smoking Status (MU): Never Smoked Tobacco Review of Systems All Other Systems Reviewed And Are Negative: Yes Constitutional: Positive: Negative Skin: Positive: Rash Respiratory: Positive: Negative Cardiovascular: Positive: Negative Gastrointestinal: Positive: Negative Neurological: Positive: Negative Psychological: Positive: Negative Physical Exam - Summary Physical Exam Summary: GENERAL: NAD. WDWN. No pain distress. SKIN: B/L forearms with contact dermatitis. No edema, warmth, streaking, or drainage. NECK: Supple. Nontender. No lymphadenopathy. CHEST: No accessory muscle use. Breathing comfortably and in no distress. CV: Pulses intact. Cap refill <2seconds NEURO: Alert. PSYCH: Age appropriate behavior. Triage Information Reviewed: Yes Vital Signs: Initial Vital Signs Temp 97.6 F 06/07/18 17:56 Pulse 112 06/07/18 17:56 Resp 20 06/07/18 17:56 BP 133/75 06/07/18 17:56 Pulse Ox 100 06/07/18 17:56 Vital Signs Reviewed: Yes Course/Dx - Course Course Of Treatment: Contact dermatitis to b/l forearms. Rx for kenalog cream. Advised to avoid soaps at work as it appears she has a skin sensitivity to these. - Diagnoses Provider Diagnosis: Contact dermatitis Discharge - Sign-Out/Discharge Documenting (check all that apply): Patient Departure All imaging exams completed and their final reports reviewed: No Studies - Discharge Plan Condition: Stable Disposition: HOME Prescriptions: Triamcinolone 0.1% CREAM (NF) [Kenalog 0.1% Cream (NF)] 1 applic TOPICAL BID #1 tube Patient Education Materials: Contact Dermatitis (DC) Forms: *Work Release Referrals: No Primary Care Phys,NOPCP [Primary Care Provider] - Additional Instructions: If you develop a fever, shortness of breath, chest pain, new or worsening symptoms - please call your PCP or go to the ED. - Billing Disposition and Condition Condition: STABLE Disposition: Home
== END 2018-06-07 18:15 | disposition home or self-care (01) ==
LOC: UCEAST 17:27
DX: L25.9 Unspecified contact dermatitis, unspecified cause (principal)
CPT/HCPCS: 99212; A9270-GY; G0463

== ENCOUNTER 2018-07-04 11:52 | Emergency (ER) | payer MEDICAID, OTHER ==
[2018-07-04 12:38] VITALS: BP 118/73
--- NOTE | 2018-07-04 13:39 | UC ---
Throat Pain/Nasal Ozzie HPI - HPI Summary HPI Summary: 23-year-old female presents with 3 day history of sore throat, nasal congestion , runny nose, right ear pain, and nonproductive cough. Denies fever, chills, dysphagia, chest pain, shortness of breath, abdominal pain, nausea, or vomiting. - History of Current Complaint Chief Complaint: UCRespiratory Stated Complaint: SORE THROAT PAIN IN NECK Time Seen by Provider: 07/04/18 13:15 Hx Obtained From: Patient Hx Last Menstrual Period: 07/02/18 Pain Intensity: 7 - Allergies/Home Medications Allergies/Adverse Reactions: Allergies Allergy/AdvReac Type Severity Reaction Status Date / Time diphenhydramine Allergy See Comment Verified 07/04/18 12:38 [From Benadryl] PMH/Surg Hx/FS Hx/Imm Hx Previously Healthy: Yes - Denies significant PMH Other History Of: Negative For: Anticoagulant Therapy - Surgical History Surgical History: Yes Surgery Procedure, Year, and Place: - Family History Known Family History: Positive: None Negative: Diabetes, Renal Disease, Respiratory Disease, Seizure Disorder - Social History Occupation: Employed Full-time Lives: Alone Alcohol Use: None Substance Use Type: None Smoking Status (MU): Never Smoked Tobacco Review of Systems All Other Systems Reviewed And Are Negative: Yes Constitutional: Negative: Fever, Chills Skin: Negative: Rash Eyes: Negative: Drainage, Eye Redness ENT: Positive: Sore Throat, Ear Ache, Nasal Discharge, Sinus Congestion. Negative: Sinus Pain/Tenderness Respiratory: Positive: Cough. Negative: Shortness Of Breath Cardiovascular: Negative: Palpitations, Chest Pain Gastrointestinal: Negative: Abdominal Pain, Vomiting, Diarrhea, Nausea Genitourinary: Positive: Negative Musculoskeletal: Positive: Negative Neurological: Positive: Negative Is Patient Immunocompromised?: No Physical Exam - Summary Physical Exam Summary: GENERAL APPEARANCE: Well developed, well nourished, alert and cooperative, and appears to be in no acute distress. EYES: Conjunctiva clear. No drainage. EARS: External auditory canals and tympanic membranes clear, hearing grossly intact. NOSE: Mild nasal congestion. THROAT: Pharyngeal erythema. No tonsilar inflammation, swelling, exudate, or lesions. Uvula midline. NECK: Neck supple, non-tender without lymphadenopathy. CARDIAC: Normal S1 and S2. No S3, S4 or murmurs. Rhythm is regular. There is no peripheral edema, cyanosis or pallor. Extremities are warm and well perfused. Capillary refill is less than 2 seconds. Peripheral pulses intact. LUNGS: Clear to auscultation without rales, rhonchi, wheezing or diminished breath sounds. ABDOMEN: Positive bowel sounds. Soft, nondistended, nontender. No guarding or rebound. No masses or hepatosplenomegally. MUSKULOSKELETAL: ROM intact to all extremities. No joint erythema or tenderness. Normal muscular development. Normal gait. SKIN: Skin normal color, texture and turgor with no lesions or eruptions. Triage Information Reviewed: Yes Vital Signs: Initial Vital Signs Temp 97.2 F 07/04/18 12:34 Pulse 96 07/04/18 12:34 Resp 18 07/04/18 12:34 BP 118/73 07/04/18 12:34 Pulse Ox 98 07/04/18 12:34 Vital Signs Reviewed: Yes Throat Pain/Nasal Course/Dx - Course Course Of Treatment: 23-year-old female presents with 3 day history of sore throat, nasal congestion , runny nose, right ear pain, and nonproductive cough. Denies fever, chills, dysphagia, chest pain, shortness of breath, abdominal pain, nausea, or vomiting. Afebrile. Vital signs stable. Exam remarkable for mild nasal and pharyngeal erythema without tonsillar swelling, exudate, or cervical lymphadenopathy. Rapid strep test was negative. Recommending symptomatic treatment for a viral upper respiratory infection. She is to return here follow -up with her primary care provider in 5-7 days if symptoms do not improve. Anticipatory guidance and warning symptoms were reviewed with the patient. Verbalizes understanding and agrees with plan of care. - Differential Dx/Diagnosis Differential Diagnosis/HQI/PQRI: Influenza, Mononucleosis, Pharyngitis, Tonsillitis, URI Provider Diagnosis: Viral URI with cough Discharge - Sign-Out/Discharge Documenting (check all that apply): Patient Departure All imaging exams completed and their final reports reviewed: No Studies - Discharge Plan Condition: Stable Disposition: HOME Patient Education Materials: Upper Respiratory Infection (ED) Referrals: No Primary Care Phys,NOPCP [Primary Care Provider] - Additional Instructions: The rapid strep test performed in the clinic today was negative. Your history and exam are consistent with a viral upper respiratory infection. Viral infections do not respond to antibiotics and are limited to the treatment of symptoms. Viral infections typically run their course in 7-10 days. Drink plenty of fluids to avoid dehydration especially if you are running any fever. Use an over the counter decongestant such as Sudafed to help with congestion. Take over the counter acetaminophen (Tylenol) or ibuprofen (Advil, Motrin) according to directions as needed for pain or fever. Use salt water gargles several times a day if you have a sore throat. You may also use Chloraseptic spray or Cepacol lonzenges according to directions which contain a numbing medication and can provide some temporary relief from your sore throat. Return here or follow up with your primary care provider in 5-7 days if symptoms persist. Seek immediate medical attention in the emergency room if you have fever greater than 100.5 F despite taking acetaminophen or ibuprofen, have chest pain , difficulty breathing, are unable to swallow, or have any worsening of symptoms. - Billing Disposition and Condition Condition: STABLE Disposition: Home
== END 2018-07-04 13:52 | disposition home or self-care (01) ==
LOC: UCEAST 11:52
DX: J06.9 Acute upper respiratory infection, unspecified (principal); R05 Cough; Z88.8 Allergy status to other drugs, medicaments and biological substances
CPT/HCPCS: 87651; 99211; G0463

== ENCOUNTER 2020-01-07 08:36 | Inpatient (IN) ==
[~2020-01-07 08:36] MED LIST: Buffered Lidocaine 1% SYRIN 1 ml INTRADERM ONE; Lactated Ringers 1000 ml BAG 1,000 ML IV SCH; Sodium Citrate/Citric Acid LIQ 15 ML UDC PO ONE
[2020-01-07] MEDS ORDERED: Naloxone 0.4 mg VIAL 0.4 mg/ml 1 ml VIAL IV PRN ×3 (10:26→19:26)
[2020-01-07] MEDS ORDERED: DiMENhydriNATE IV 50 mg/ml 1 ml VIAL IV PUSH PRN ×2 (10:26→17:28)
[2020-01-07] MEDS ORDERED: fentaNYL 100 mcg/2 ml 50 MCG/ML VIAL IV PRN ×2 (10:26→17:28)
[2020-01-07] MEDS ORDERED: Acetaminophen IV 1 GM/100ML 1,000 MG/100 ML VIAL IVPB ONE ×2 (10:26→17:28)
[2020-01-07] MEDS ORDERED: ceFAZolin 2 GM PREMIX 2 GM/50 ML BAG IVPB ONE (13:00)
[2020-01-07] MEDS ORDERED: Morphine PF AMP (0.5MG/ML) 5 MG/10 ML AMP ONE (14:57)
[2020-01-07] MEDS ORDERED: Dexamethasone IV 4 MG/ML VIAL 1 ml VIAL ONE (14:58)
[2020-01-07] MEDS ORDERED: Oxytocin 10 UNITS/ML 1 ML VIAL ONE (14:58)
[2020-01-07] MEDS ORDERED: Ondansetron 4 mg VIAL 2 MG/ML 2 ml VIAL ONE ×2 (14:58→17:30)
[2020-01-07] MEDS ORDERED: Phenylephrine 40 mcg/mL 10mL (400mcg) SYRINGE ONE (15:36)
[2020-01-07] MEDS ORDERED: diPHENhydraMINE IV 50 MG/ML 1 ml VIAL (BENADRYL) IV PRN ×2 (17:28→19:26)
[2020-01-07] MEDS ORDERED: Glycerin ADULT 2.4 gm SUPP PR PRN (17:36)
[2020-01-07] MEDS ORDERED: Dibucaine 1% OINT 28.35 GM TUBE PR PRN (17:36)
[2020-01-07] MEDS ORDERED: Witch Hazel PAD JAR TOPICAL PRN (17:36)
[2020-01-07] MEDS ORDERED: Ondansetron 4 mg VIAL 2 MG/ML 2 ml VIAL IV PRN ×2 (17:37→19:26)
[2020-01-07] MEDS ORDERED: Lactated Ringers 1000 ml BAG 1,000 ML IV SCH (18:00)
[2020-01-08 07:15] LABS: ABS Eosinophils 0.1 10^3/ul (0-0.6); ABS Lymphocytes 2.1 10^3/ul (1.0-4.8); ABS Monocytes 0.7 10^3/ul (0-0.8); Eosinophil % 0.4 %; Hematocrit 30 % (35-47); Hemoglobin 9.9 g/dL (12.0-16.0); Lymphocyte % 16.4 %; Mean Corpuscular HGB Conc 34 g/dL (31-36); Mean Corpuscular Hemoglobin 30 pg (27-31); Mean Corpuscular Volume 89 fL (80-97); Mean Platelet Volume 8.6 fL (7.4-10.4); Platelet Count 202 10^3/uL (150-450); Red Cell Distribution Width 14 % (10-15); White Blood Count 12.9 10^3/uL (3.5-10.8)
[2020-01-10 07:52] VITALS: BP 107/67
[2020-01-10] MEDS ORDERED: Scopolamine PATCH Remove NOTE PATCH OFF PRN (19:26)
== END 2020-01-10 12:42 | disposition home or self-care (01) | DRG 540 ==
LOC: MCHOB 08:36
PROVIDERS: ADMIT Obstetrics & Gynecology; ATTEND Obstetrics & Gynecology

== ENCOUNTER 2021-03-04 05:38 | Inpatient (IN) ==
[2021-03-04 07:24] LABS: Hematocrit 32 % (35-47); Hemoglobin 10.8 g/dL (12.0-16.0); Mean Corpuscular HGB Conc 34 g/dL (31-36); Mean Corpuscular Hemoglobin 30 pg (27-31); Mean Corpuscular Volume 89 fL (80-97); Mean Platelet Volume 8.7 fL (7.4-10.4); Platelet Count 204 10^3/uL (150-450); Red Cell Distribution Width 15 % (10-15); White Blood Count 9.3 10^3/uL (3.5-10.8)
[2021-03-04] MEDS ORDERED: ceFOXitin 2 GM IVPREMIX 2 GM/50 ML BAG ONE (11:18)
[2021-03-04] MEDS ORDERED: Oxytocin 10 UNITS/ML 1 ML VIAL ONE (11:26)
[2021-03-04] MEDS ORDERED: Ondansetron 4 mg VIAL 2 MG/ML 2 ml VIAL ONE (11:26)
[2021-03-04] MEDS ORDERED: fentaNYL 100 mcg/2 ml 50 MCG/ML VIAL ONE (11:26)
[2021-03-04] MEDS ORDERED: Morphine PF AMP (0.5MG/ML) 5 MG/10 ML AMP ONE (11:27)
[2021-03-04] MEDS ORDERED: ceFOXitin 2 GM IVPREMIX 2 GM/50 ML BAG IVPB ONE (12:00)
[2021-03-04] MEDS ORDERED: Naloxone 0.4 mg VIAL 0.4 mg/ml 1 ml VIAL IV PRN ×2 (12:45→12:46)
[2021-03-04] MEDS ORDERED: HYDROmorphone 1 MG/1 ML SYRINGE IV PRN (12:46)
[2021-03-04] MEDS ORDERED: Ondansetron 4 mg VIAL 2 MG/ML 2 ml VIAL IV PRN (12:46)
[2021-03-04] MEDS ORDERED: Acetaminophen IV 1 GM/100ML 100 ML IV ONE (12:46)
[2021-03-04] MEDS ORDERED: DiMENhydriNATE IV 50 mg/ml 1 ml VIAL IV PUSH PRN (12:46)
[2021-03-04] MEDS ORDERED: Tetan/Diph/Pertus SYR(Tdap) 0.5 ML SYR(BOOSTRIX) use SYR contains LATEX IM ONE (12:52)
[2021-03-04] MEDS ORDERED: Glycerin ADULT 2.4 gm SUPP PR PRN (12:52)
[2021-03-04] MEDS ORDERED: Dibucaine 1% OINT 28.35 GM TUBE PR PRN (12:52)
[2021-03-04] MEDS ORDERED: Witch Hazel PAD JAR TOPICAL PRN (12:52)
[2021-03-04] MEDS ORDERED: Lactated Ringers 1000 ml BAG 1,000 ML IV SCH (13:00)
[2021-03-04] MEDS ORDERED: Oxytocin in LR 20 UNITS/1,000 ML BAG IVPB SCH (13:00)
[2021-03-05 07:29] LABS: ABS Eosinophils 0.2 10^3/ul (0-0.6); ABS Lymphocytes 2.1 10^3/ul (1.0-4.8); ABS Monocytes 0.5 10^3/ul (0-0.8); ABS Neutrophils 5.6 10^3/ul (1.5-7.7); Eosinophil % 2.3 %; Hematocrit 28 % (35-47); Hemoglobin 9.6 g/dL (12.0-16.0); Lymphocyte % 24.5 %; Mean Corpuscular HGB Conc 34 g/dL (31-36); Mean Corpuscular Hemoglobin 30 pg (27-31); Mean Corpuscular Volume 90 fL (80-97); Mean Platelet Volume 8.4 fL (7.4-10.4); Platelet Count 176 10^3/uL (150-450); Red Blood Count 3.17 10^6 /uL (3.70-4.87); Red Cell Distribution Width 14 % (10-15); White Blood Count 8.4 10^3/uL (3.5-10.8)
[2021-03-06 08:24] VITALS: BP 104/56
[2021-03-07] MEDS ORDERED: Scopolamine PATCH Remove NOTE PATCH OFF SCH (18:00)
== END 2021-03-06 12:35 | disposition home or self-care (01) | DRG 540 ==
LOC: MCHOB 05:38
PROVIDERS: ADMIT Obstetrics & Gynecology; ATTEND Obstetrics & Gynecology